=== PATIENT | male | born 1960 | race Caucasian/White ===

== ENCOUNTER 2017-10-11 10:37 | Emergency (ER) | payer SELFPAY ==
[2017-10-11 10:39] VITALS: BP 107/71; PULSE 94; RESP 18; TEMP 36.7; O2SAT 97; BMI 21.9
--- NOTE | 2017-10-11 10:50 | ED.VISSUMM ---
- ER Visit Summary Date of Service: 10/11/17 Chief Complaint: Rash History of Present Illness: The patient is a 57 M who has had a poison alyson rash for 6 days. He has tried a topical steroid with no relief. 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 Physical Examination:AVSS. Patient has a rash c/w poison alyson on the arms, hands, and legs. Emergency Department Course and Treatment: As this is already day 6 I will go ahead and give Kenalog IM. Return if worsening or concerns Impression: 1. Rhus dermatitis This note was generated with [employer] dictation software. It may contain incorrect words, spelling, and punctuation that were not noted in review of the chart prior to signing ED Disposition - Plan for ED Patient: Disposition: Home or Assisted Living Chief Complaint: Rash Instructions: ED Dermatitis Poison Alyson Referrals: Tracy Panchal MD [Primary Care Provider] - 1 Week if not improving
--- NOTE | 2017-10-11 10:53 | ED.DCSUM_ITS ---
- ER Visit Summary Date of Service: 10/11/17 Chief Complaint: Rash History of Present Illness: The patient is a 57 M who has had a poison alyson rash for 6 days. He has tried a topical steroid with no relief. 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 Physical Examination:AVSS. Patient has a rash c/w poison alyson on the arms, hands , and legs. Emergency Department Course and Treatment: As this is already day 6 I will go ahead and give Kenalog IM. Return if worsening or concerns Impression: 1. Rhus dermatitis This note was generated with [employer] dictation software. It may contain incorrect words, spelling, and punctuation that were not noted in review of the chart prior to signing ED Disposition - Plan for ED Patient: Disposition: Home or Assisted Living Chief Complaint: Rash Instructions: ED Dermatitis Poison Alyson Referrals: Tracy Panchal MD [Primary Care Provider] - 1 Week if not improving
[2017-10-11] MEDS: Triamcinolone Acetonide 40 MG/ML Vial 80 MG IM (11:01)
== END 2017-10-11 11:16 | disposition home or self-care (01) ==
LOC: ED 11:00
PROVIDERS: Emergency Provider Emergency Medicine
DX: L23.7 Allergic contact dermatitis due to plants, except food (principal); Z72.0 Tobacco use
CPT/HCPCS: 99282